=== PATIENT | female | born 1990 | race African-American/Black ===

== ENCOUNTER 2019-01-18 22:31 | Emergency (ER) | payer MEDICAID, OTHER ==
[~2019-01-18] VITALS: Ht 154.9 cm; Wt 85.0 kg
[~2019-01-18 22:31] MED LIST: ALBU18HF2 IH; HYDR-523 PO
[2019-01-18] MEDS ORDERED: MORPHINE SULFATE 4 MG/ML CPJ (NOT FOR IM USE) IV ONE (23:45)
[2019-01-18] MEDS ORDERED: ONDANSETRON HCL 4MG/2ML INJ IV ONE (23:45)
[2019-01-19] MEDS ORDERED: LIDOCAINE HCL/PF 1% 10 MG/ML 5ML VIAL IJ ONE (00:30)
[2019-01-19] MEDS ORDERED: HYDROCODONE/ACETAMINOPHEN 5/325MG TABLET PO ONE (02:45)
[2019-01-19 02:59] VITALS: BP 122/78
== END 2019-01-19 03:06 | disposition home or self-care (01) ==
LOC: ER 22:31
DX: S92.511A Displaced fracture of proximal phalanx of right lesser toe(s), initial encounter for closed fracture (principal); W22.8XXA Striking against or struck by other objects, initial encounter; Y93.01 Activity, walking, marching and hiking; Y92.89 Other specified places as the place of occurrence of the external cause
CPT/HCPCS: 73630; 96374; 96375; 99284; J2270; J2405; J3490; Z7610